=== PATIENT | female | born 1955 | race Caucasian/White ===

== ENCOUNTER → 2018-09-19 | Outpatient (CLI) | payer OTHER ==
[~2018-09-19] MED LIST: ESTR0.5T3 PO; LEVO50TA5 PO; LOSA50TA2 PO
[2018-09-19 08:56] LABS: MICROSCOPIC NOT IND
[2018-09-19 08:57] LABS: BASOPHILS % (AUTO) 2 % (0-1); EOSINOPHILS # (AUTO) 0.16 x10^3/uL (0-0.4); EOSINOPHILS % (AUTO) 3 % (1-7); LYMPHOCYTES # (AUTO) 2.12 x10^3/uL (1-3.4); LYMPHOCYTES % (AUTO) 33 % (22-44); MD NO; MEAN CORPUSCULAR HEMOGLOBIN 31.3 pg (27.0-34.8); MEAN CORPUSCULAR HGB CONC 33.8 g/dL (32.4-35.8); MEAN CORPUSCULAR VOLUME 92.8 fL (80-100); MEAN PLATELET VOLUME 8.5 fL (7.4-10.4); MONOCYTES # (AUTO) 0.57 x10^3/uL (0.2-0.8); MONOCYTES % (AUTO) 9 % (2-9); NEUTROPHILS # (AUTO) 3.57 x10^3/uL (1.8-6.8); NEUTROPHILS % (AUTO) 55 % (42-75); PLATELET COUNT 267 x10^3/uL (130-400); RED BLOOD COUNT 4.63 x10^6/uL (3.82-5.3); RED CELL DISTRIBUTION WIDTH 12.8 % (9.6-15.2)
[2018-09-19 08:59] LABS: CULTURE INDICATED? NO
[2018-09-19 09:06] LABS: INTERNATIONAL NORMALIZED RATIO 0.97 (0.93-1.1)
[2018-09-19 09:08] LABS: ALANINE AMINOTRANSFERASE 28 U/L (12-78); ANION GAP 5 mmol/L (5-15); CALCIUM 9.4 mg/dL (8.5-10.1); CHLORIDE 105 mmol/L (98-107); CREATININE 0.95 mg/dL (0.55-1.02)
[2018-09-19 09:10] LABS: ALKALINE PHOSPHATASE 71 U/L (45-117); BILIRUBIN,TOTAL 0.4 mg/dL (0.2-1.0)
== END | disposition home or self-care (01) ==
LOC: STAR 07:45
PROVIDERS: ATTEND Neurological Surgery
DX: Z01.818 Encounter for other preprocedural examination (principal); S13.140A Subluxation of C3/C4 cervical vertebrae, initial encounter; M50.323 Other cervical disc degeneration at C6-C7 level; M47.22 Other spondylosis with radiculopathy, cervical region; I10 Essential (primary) hypertension; X58.XXXA Exposure to other specified factors, initial encounter; Y93.89 Activity, other specified; Y92.89 Other specified places as the place of occurrence of the external cause; Y99.8 Other external cause status
CPT/HCPCS: 36415; 71046; 72050; 80053; 81003; 85025; 85610; 85730; 93005

== ENCOUNTER 2018-10-05 05:24 | Inpatient (IN) | payer OTHER, MEDICARE ==
[~2018-10-05] VITALS: Ht 167.6 cm; Wt 78.0 kg
[2018-10-05 06:05] VITALS: BP 136/84
[2018-10-05] MEDS ORDERED: LACTATED RINGERS 1,000 ML IV SCH (06:28)
[2018-10-05] MEDS ORDERED: FENTANYL PF 250 MCG/5ML ONE ×2 (07:14→09:02)
[2018-10-05] MEDS ORDERED: MIDAZOLAM 1 MG/ML, 2ML ONE (07:14)
[2018-10-05] MEDS ORDERED: ACETAMINOPHEN 500 MG TABLET ONE ×2 (07:30→07:31)
[2018-10-05] MEDS ORDERED: SCOPOLAMINE PATCH, 1.5MG PATCH.TD72 TD ONE ×2 (07:30)
[2018-10-05] MEDS ORDERED: GABAPENTIN 300 MG CAPSULE ONE (07:31)
[2018-10-05] MEDS ORDERED: ONDANSETRON 2MG/ML, 2ML ONE (07:42)
[2018-10-05] MEDS ORDERED: LABETALOL 20 MG/4 ML ONE (07:42)
[2018-10-05] MEDS ORDERED: CEFAZOLIN 1,000 MG ONE (07:42)
[2018-10-05] MEDS ORDERED: SUCCINYLCHOLINE 20 MG/ML, 10ML ONE (07:42)
[2018-10-05] MEDS ORDERED: PROPOFOL 10 MG/ML, 50ML ONE (07:42)
[2018-10-05] MEDS ORDERED: PROPOFOL 10 MG/ML, 20ML ONE (07:42)
[2018-10-05] MEDS ORDERED: DEXAMETHASONE 4 MG/ML, 1ML ONE (07:42)
[2018-10-05] MEDS ORDERED: BUPIVACAINE/PF 0.5% INFIL ONE (08:25)
[2018-10-05] MEDS ORDERED: BACITRACIN 50,000 UNIT IRRIG ONE (08:25)
[2018-10-05] MEDS ORDERED: THROMBIN 5,000 UNIT VIAL TP ONE (08:26)
[2018-10-05] MEDS ORDERED: LABETALOL 5MG/ML, 20ML IV PRN (09:00)
[2018-10-05] MEDS ORDERED: FENTANYL PF 100 MCG/2ML IV PRN (09:00)
[2018-10-05] MEDS ORDERED: OXYcodone 5 MG/5 ML ORAL.SOL UDC PO PRN (09:00)
[2018-10-05] MEDS ORDERED: LORazepam 2 MG/ML, 1ML IVPush PRN (09:00)
[2018-10-05] MEDS ORDERED: HYDROmorphone 1 MG/ML, 1ML IV PRN (09:00)
[2018-10-05] MEDS ORDERED: PROMETHAZINE 25 MG/ML, 1ML IV PRN (09:00)
[2018-10-05] MEDS ORDERED: ALBUTEROL SULFATE 2.5 MG/3 ML NPPB PRN (09:00)
[2018-10-05] MEDS ORDERED: hydrALAzine 20 MG/ML, 1ML IV PRN (09:00)
[2018-10-05] MEDS ORDERED: HYDROcodone/APAP 10/325 MG TABLET PO PRN (10:30)
[2018-10-05] MEDS ORDERED: PHARMACY MAY ADJ FOR RENAL FX MC PRN (10:30)
[2018-10-05] MEDS ORDERED: BISACODYL 10 MG SUPP PR PRN (10:30)
[2018-10-05] MEDS ORDERED: TIZANIDINE 4MG TABLET PO PRN (10:30)
[2018-10-05] MEDS ORDERED: PROMETHAZINE 25 MG/ML, 1ML IM PRN (10:30)
[2018-10-05] MEDS ORDERED: ONDANSETRON 2MG/ML, 2ML IVPush PRN (10:30)
[2018-10-05] MEDS ORDERED: DIPHENHYDRAMINE 50 MG/ML, 1ML IVPush PRN (10:30)
[2018-10-05] MEDS ORDERED: MAGNESIUM HYDROXIDE 8%, 30ML UDC PO PRN (10:30)
[2018-10-05] MEDS ORDERED: HYDROmorphone 1 MG/ML, 1ML IVPush PRN (10:30)
[2018-10-05] MEDS ORDERED: MEPERIDINE/PF 100 MG/ML IM PRN (10:30)
[2018-10-05 14:33] VITALS: BP 115/54
[2018-10-05] MEDS: CEFAZOLIN PMX 1GM/50ML 50 ML IVPB SCH ×2 (14:39→22:37)
[2018-10-05] MEDS: NS + 20MEQ KCL 1,000 ML IV SCH (14:39)
[2018-10-05] MEDS: OXYcodone/APAP 5/325MG TABLET PO PRN ×2 (15:09→21:25)
[2018-10-05 20:12] VITALS: BP 105/68
[2018-10-05] MEDS ORDERED: SODIUM CHLORIDE FLUSH 10ML SYR IVF SCH (21:00)
[2018-10-06] MEDS: NS + 20MEQ KCL 1,000 ML IV SCH (00:30)
[2018-10-06 00:51] VITALS: BP 111/70
[2018-10-06 04:14] VITALS: BP_SYST 125; BP_SYST 98; BP_DIAS 60; BP_DIAS 78
[2018-10-06 08:19] VITALS: BP 136/77
[2018-10-06] MEDS ORDERED: OXYC-302 PO (08:43)
[2018-10-06] MEDS ORDERED: TIZA2CAP2 PO (08:44)
[2018-10-06] MEDS ORDERED: SENNA/DOCUSATE TABLET PO SCH (09:00)
[2018-10-06] MEDS ORDERED: ESTRADIOL 0.5 MG TABLET PO SCH ×2 (09:00)
[2018-10-06] MEDS ORDERED: ESTRADIOL 1 MG TABLET PO SCH (09:00)
[2018-10-06] MEDS ORDERED: LOSARTAN 50MG TABLET PO SCH (09:00)
[2018-10-06] MEDS ORDERED: LEVOTHYROXINE 50 MCG TABLET PO SCH (09:00)
== END 2018-10-06 09:16 | disposition home or self-care (01) | DRG 473 ==
LOC: OUT 05:24 → EDSTATUS 07:30 → OUT 10:10 → 4NOR 10:11 → DCLOUNGE 10-06 09:06
PROVIDERS: ADMIT Neurological Surgery; ATTEND Neurological Surgery
PROC: 0RB30ZZ Excision of Cervical Vertebral Disc, Open Approach (ICD-10-PCS; 2018-10-05)
PROC: 4A11X4G Monitoring of Peripheral Nervous Electrical Activity, Intraoperative, External Approach (ICD-10-PCS; 2018-10-05)
PROC: 0RG20A0 Fusion of 2 or more Cervical Vertebral Joints with Interbody Fusion Device, Anterior Approach, Anterior Column, Open Approach (ICD-10-PCS; principal; 2018-10-05 07:30)
DX: M47.22 Other spondylosis with radiculopathy, cervical region (principal); I10 Essential (primary) hypertension; E03.9 Hypothyroidism, unspecified; M48.02 Spinal stenosis, cervical region; Z90.710 Acquired absence of both cervix and uterus; Z88.0 Allergy status to penicillin; Z88.8 Allergy status to other drugs, medicaments and biological substances; Z87.01 Personal history of pneumonia (recurrent)
CPT/HCPCS: 72040; 95938; 95941; C1713; G0378; J0171; J0690; J1100; J2250; J2405; J2704; J3010; J3480; J3490; C1760; J0330; J7120